=== PATIENT | female | born 2000 | race Caucasian/White ===

== ENCOUNTER → 2019-05-30 | Emergency (ER) | payer OTHER ==
[2019-05-30 19:19] LABS: URINE BLOOD (Dip) POC Negative (NEGATIVE); URINE GLUCOSE (Dip) POC Negative (NEGATIVE); URINE KETONES (Dip) POC Negative (NEGATIVE); URINE LEUKOCYTE EST (Dip) POC 1+ (NEGATIVE); URINE NITRITE (Dip) POC Negative (NEGATIVE); URINE TOTAL PROTEIN POC Negative (NEGATIVE)
[2019-05-30 19:19] LABS: URINE PH (Dip) POC 5.5 (5.0-8.5)
== END | disposition home or self-care (01) ==
LOC: FTE 18:38
DX: L73.9 Follicular disorder, unspecified (principal)
CPT/HCPCS: 81003; 81025; 99283